=== PATIENT | female | born 1995 | race Caucasian/White ===

== ENCOUNTER 2017-04-07 00:07 | Emergency (ER) | payer SELFPAY ==
[~2017-04-07] VITALS: Ht 154.9 cm; Wt 45.1 kg
[~2017-04-07 00:07] MED LIST: LORTA5 PO; MACR100C PO; MISO100 PO; ZOFR4TAB3 SL
[2017-04-07 00:16] VITALS: BP 134/94; PULSE 113; RESP 14; TEMP 98.2; O2SAT 100
[2017-04-07 00:30] VITALS: BP 108/79; PULSE 90; RESP 18; O2SAT 99
[2017-04-07] MEDS ORDERED: SODIUM CHLOR 0.9% 1000 ML INJ 1,000 ML IV ONE (00:44)
--- NOTE | 2017-04-07 00:48 | PD ---
HPI Chief Complaint: Complaint Time Seen by Provider: 00:44 Travel History International Travel<30 days: No Contact w/Intl Traveler<30days: No Traveled to known affect area: No History of Present Illness HPI 21 year-old female presents to the emergency department by private transportation for evaluation of urinary frequency and dysuria. Patient states since then present since yesterday. Patient states she hasn't felt well for approximately 5 days. Patient reports this evening while at work she had a dizzy spell where reportedly customers thought she looked like she might pass out so called 911. According the patient when she was assessed by paramedics state for her heart rate was fast and that she may have an infection or dehydration. Patient has history of recurrent urinary tract infections. Patient denies fever chills nausea vomiting chest pain shortness of breath cough sore throat earache flank pain or generalized abdominal pain. Patient has noted some discomfort in the left lower quadrant. Patient is 5 para 0 AB 5. Patient denies any other procedures or surgeries. Patient denies any chronic medical conditions. Patient does admit to occasional alcohol use and daily tobacco use and denies substance use. No prior history of near syncope. There is no seizure activity per witnesses. Patient states episode lasted for seconds she did not fall did not sustain any injury and she was and where she was after the event but does not recall specifically the event. PFSH Past Medical History Narrative Medical Dayanna-Ritchie virus UTI D&C AB 5; tobacco use alcohol use; nursing notes reviewed Autoimmune Disease: Yes (DAYANNA RITCHIE VIRUS) Diabetes: No Diminished Hearing: No Immunizations Current: Yes Influenza Vaccination: No ?: Not LMP: 03/22/17 :"SPOTTING" Menopausal: No : 5 Para: 0 Miscarriage: 2 : 3 Dilation and Curettage (D&C): Yes Social History Alcohol Use: Yes ("RARELY") Tobacco Use: Yes (1 PPD) Substance Use: No Allergies-Medications (Allergen,Severity, Reaction): Coded Allergies: No Known Allergies (Verified , 04/07/17) Reported Meds & Prescriptions Reported Meds & Active Scripts Active Pyridium (Phenazopyridine HCl) 100 Mg Tab 100 Mg PO Q8H PRN Ciprofloxacin (Ciprofloxacin HCl) 500 Mg Tab 500 Mg PO BID 10 Days Narrative Medication DEPO provera Review of Systems Except as stated in HPI: all other systems reviewed are Neg General / Constitutional: No: Fever, Chills HENT: No: Congestion Cardiovascular: No: Chest Pain or Discomfort, Syncope (near syncope) Respiratory: No: Shortness of Breath Gastrointestinal: Positive: Abdominal Pain, No: Nausea, Vomiting, Diarrhea Genitourinary: Positive: Urgency, Frequency, Dysuria, No: Flank Pain, Discharge, Vaginal Bleeding Musculoskeletal: No: Myalgias, Arthralgias, Edema Skin: No Rash Neurologic: No: Weakness, Syncope (near syncope) Psychiatric: No: Anxiety Hematologic/Lymphatic: No: Lymph Node Enlargement Physical Exam Narrative GENERAL: Well-developed well-nourished female in no acute distress no respiratory distress; gcs 15 SKIN: Warm and dry. HEAD: Atraumatic. Normocephalic. EYES: Pupils equal and round. No scleral icterus. No injection or drainage. ENT: No nasal bleeding or discharge. Mucous membranes pink and moist. NECK: Trachea midline. No JVD. CARDIOVASCULAR: Regular rate and rhythm. RESPIRATORY: No accessory muscle use. Clear to auscultation. Breath sounds equal bilaterally. GASTROINTESTINAL: Abdomen soft, non-tender, nondistended. Hepatic and splenic margins not palpable. MUSCULOSKELETAL: Extremities without clubbing, cyanosis, or edema. No obvious deformities. NEUROLOGICAL: Awake and alert. No obvious cranial nerve deficits. Motor grossly within normal limits. Five out of 5 muscle strength in the arms and legs. Normal speech. PSYCHIATRIC: Appropriate mood and affect; insight and judgment normal. Data Data Last Documented VS Vital Signs Date Time Temp Pulse Resp B/P Pulse Ox O2 Delivery O2 Flow Rate FiO2 04/07/17 01:50 81 17 107/63 100 Room Air 04/07/17 00:16 98.2 Orders Electrocardiogram (04/07/17 00:44) Basic Metabolic Panel (Bmp) (04/07/17 00:44) Ed Urine Pregnancytest Poc (04/07/17 00:44) Complete Blood Count With Diff (04/07/17 00:44) Magnesium (Mg) (04/07/17 00:44) Troponin I (04/07/17 00:44) Urinalysis - C+S If Indicated (04/07/17 00:44) Ecg Monitoring (04/07/17 00:44) Iv Access Insert/Monitor (04/07/17 00:44) Oximetry (5/31/17 00:44) Sodium Chlor 0.9% 1000 Ml Inj (Ns 1000 M (04/07/17 00:44) D-Dimer (04/07/17 00:48) Urine Culture (04/07/17 01:00) Ceftriaxone Inj (Rocephin Inj) (04/07/17 02:15) Labs Laboratory Tests Test 04/07/17 01:00 White Blood Count 8.6 TH/MM3 Red Blood Count 3.84 MIL/MM3 Hemoglobin 12.2 GM/DL Hematocrit 35.3 % Mean Corpuscular Volume 91.8 FL Mean Corpuscular Hemoglobin 31.8 PG Mean Corpuscular Hemoglobin 34.6 % Concent Red Cell Distribution Width 12.3 % Platelet Count 169 TH/MM3 Mean Platelet Volume 11.6 FL Neutrophils (%) (Auto) 76.3 % Lymphocytes (%) (Auto) 15.9 % Monocytes (%) (Auto) 6.3 % Eosinophils (%) (Auto) 1.0 % Basophils (%) (Auto) 0.5 % Neutrophils # (Auto) 6.6 TH/MM3 Lymphocytes # (Auto) 1.4 TH/MM3 Monocytes # (Auto) 0.5 TH/MM3 Eosinophils # (Auto) 0.1 TH/MM3 Basophils # (Auto) 0.0 TH/MM3 CBC Comment DIFF FINAL Differential Comment D-Dimer Quantitative (PE/DVT) LESS THAN 0.19 MG/L FEU Urine Color ALDO Urine Turbidity MOD Urine pH 6.5 Urine Specific Kinzers 1.020 Urine Protein 100 mg/dL Urine Glucose (UA) 100 mg/dL Urine Ketones 15 mg/dL Urine Occult Blood MOD Urine Nitrite POS Urine Bilirubin NEG Urine Leukocyte Esterase SMALL Urine WBC 25-49 /hpf Urine WBC Clumps MOD Urine Squamous Epithelial 6-8 /hpf Cells Urine Amorphous Sediment FEW Urine Bacteria MOD /hpf Urine Mucus FEW /lpf Microscopic Urinalysis Comment CULTURE INDICATED Sodium Level 140 MEQ/L Potassium Level 3.4 MEQ/L Chloride Level 108 MEQ/L Carbon Dioxide Level 24.6 MEQ/L Anion Gap 7 MEQ/L Blood Urea Nitrogen 12 MG/DL Creatinine 0.82 MG/DL Estimat Glomerular Filtration 86 ML/MIN Rate Random Glucose 88 MG/DL Calcium Level 9.2 MG/DL Magnesium Level 2.3 MG/DL Troponin I LESS THAN 0.02 NG/ML MDM Medical Decision Making Medical Screen Exam Complete: Yes Emergency Medical Condition: Yes Medical Record Reviewed: Yes Interpretation(s) POC hcg: negative EKG: Normal sinus rhythm rate 96 normal axis and intervals no acute ST elevation or injury pattern or ectopy noted CBC & BMP Diagram 04/07/17 01:00 Vital Signs Date Time Temp Pulse Resp B/P Pulse Ox O2 Delivery O2 Flow Rate FiO2 04/07/17 01:50 81 17 107/63 100 Room Air 04/07/17 00:30 90 18 108/79 99 04/07/17 00:16 98.2 113 14 134/94 100 Urinalysis: Positive nitrites positive site Estrace positive clumped wbc's- positive WBCs positive bacteria; culture indicated D-dimer: 0.19, not elevated Troponin I: Less than 0.22, not elevated Differential Diagnosis Dysuria, UTI, pyelonephritis, , ruptured ovarian cyst, ovarian torsion , dehydration, electrolyte disturbance, PE, arrhythmia, seizure Narrative Course The access obtained specimens collected and sent for resulting Patient administered 1 L normal saline Laboratory values resulted patient will be given first dose of antibiotic in the emergency department Rocephin 1 g IV piggyback for abnormal urinalysis consistent with urinary tract infection suspect possible early pyelonephritis; patient is stable for outpatient management Sepsis Criteria SIRS Criteria (2 or more): Heart rate over 90 Diagnosis Primary Impression: UTI (urinary tract infection) with pyuria Referrals: Primary Care Physician call for appointment Patient Instructions: General Instructions Departure Forms: Tests/Procedures, Work Release Special Instructions: no work x 2 days Additional Instructions: Increase fluid hydration Take medications as prescribed Follow-up with primary care provider May take as needed acetaminophen/Tylenol every 4 hours for fever 100.4F or greater May take as needed ibuprofen/Advil/Motrin every 6-8 hours as needed for fever 100.4F or greater or for pain associated with inflammation Return to the emergency department for any concerns or change in condition No work 2 days Add potassium containing foods and beverages to dietary intake Med/Other Pt SpecificInfo: Prescription(s) given Scripts Phenazopyridine (Pyridium)100 Mg [id number] Mg PO Q8H PRN (DYSURIA) #6 TAB Ref 0 Prov:Janae Tobin MD 04/07/17 Ciprofloxacin 500 Mg [id number] Mg PO BID 10 Days Ref 0 Prov:Janae Tobin MD 04/07/17 Disposition: 01 DISCHARGE HOME Condition: Stable Janae Tobin MD April 07, 2017 00:48
[2017-04-07 01:15] LABS: AUTOMATED NEUTROPHIL # 6.6 TH/MM3 (1.8-7.7); BASOPHIL % 0.5 % (0.0-2.0); EOSINOPHIL # 0.1 TH/MM3 (0-0.4); HEMATOCRIT 35.3 % (35.0-46.0); HEMO FLAGS DIFF FINAL; LYMPH % 15.9 % (9.0-44.0); LYMPHOCYTE # 1.4 TH/MM3 (1.0-4.8); MEAN CELL VOLUME 91.8 FL (80.0-100.0); MEAN CORPUSCULAR HEMOGLOBIN 31.8 PG (27.0-34.0); MEAN CORPUSCULAR HGB CONC 34.6 % (32.0-36.0); MONO % 6.3 % (0.0-8.0); NEUT % 76.3 % (16.0-70.0); PLATELET COUNT 169 TH/MM3 (150-450); RED BLOOD COUNT 3.84 MIL/MM3 (4.00-5.30); RED CELL DISTRIBUTION WIDTH 12.3 % (11.6-17.2); WHITE BLOOD COUNT 8.6 TH/MM3 (4.0-11.0)
[2017-04-07 01:24] LABS: CHLORIDE 108 MEQ/L (98-107); POTASSIUM 3.4 MEQ/L (3.5-5.1); SODIUM (NA) 140 MEQ/L (136-145)
[2017-04-07 01:27] LABS: ANION GAP 7 MEQ/L (5-15); BICARBONATE 24.6 MEQ/L (21.0-32.0); BLOOD UREA NITROGEN 12 MG/DL (7-18); MAGNESIUM 2.3 MG/DL (1.5-2.5)
[2017-04-07 01:28] LABS: GLUCOSE,URINE 100 mg/dL (NEG); KETONE, URINE 15 mg/dL (NEG); PH, URINE 6.5 (5.0-8.5)
[2017-04-07 01:31] LABS: GLOMERULAR FILTRATION RATE 86 ML/MIN (>89)
[2017-04-07 01:40] LABS: BLOOD, URINE MOD (NEG); NITRITE,URINE POS (NEG)
[2017-04-07 01:41] LABS: MUCUS URINE FEW /lpf (OCC); URINE COLOR AMBER (YELLW/STRAW)
[2017-04-07 01:42] LABS: BACTERIA, URINE MOD /hpf
[2017-04-07 01:44] LABS: COMMENT (UR) CULTURE INDICATED; CULTURE IF INDICATED CULTURE INDICATED
[2017-04-07 01:50] VITALS: BP 107/63; PULSE 81; RESP 17; O2SAT 100
[2017-04-07] MEDS ORDERED: CIPR500T2 PO (02:08)
[2017-04-07] MEDS ORDERED: PHEN0.4T PO (02:08)
[2017-04-07] MEDS ORDERED: cefTRIAXone INJ 1,000 MG in SODIUM CHLORIDE 0.9% INJ 100 ML IV ONE (02:15)
[2017-04-07 02:55] VITALS: BP 98/56; PULSE 71; RESP 16; O2SAT 98
--- NOTE | 2017-04-07 12:34 | EKG ---
Date Performed: 04/07/2017 Time Performed: 01:16:40 PTAGE: 21 years EKG: Sinus rhythm . Normal ECG NO PREVIOUS TRACING DOCTOR: Abundio Fischer Interpretating Date/Time 04/07/2017 12:33:06
== END 2017-04-07 04:00 | disposition home or self-care (01) ==
LOC: PHED 00:07
DX: N39.0 Urinary tract infection, site not specified (principal); R42 Dizziness and giddiness; B27.00 Gammaherpesviral mononucleosis without complication; F17.200 Nicotine dependence, unspecified, uncomplicated; Z79.899 Other long term (current) drug therapy
CPT/HCPCS: 80048; 81001; 83735; 84484; 84703; 85025; 85379; 87077; 87086; 87186; 93005; 96361; 96365; 99284; J0696; J7030